=== PATIENT | male | born 1980 | race Caucasian/White ===

== ENCOUNTER 2017-04-02 14:55 | Emergency (ER) | payer OTHER ==
[2017-04-02] MEDS ORDERED: Lidocaine 1% Inj (20ml) ONE (15:34)
[2017-04-02 15:38] VITALS: BMI 28.7
[2017-04-02 15:42] VITALS: TEMP 97.8; O2SAT 98
[2017-04-02] MEDS ORDERED: Bacitracin 500 Units/gm Oint Foilpak UD ONE (16:55)
--- NOTE | 2017-04-02 16:56 | C.PDOC ---
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 Pt was using a handheld contact lens curve grinder which caused injury. Pt arrives with tourniquet on finger. Denies weakness, numbness or any other complaints. Time Seen by Provider: 04/02/17 16:17 Chief Complaint (Nursing): Finger,Hand,&Wrist History Per: Patient History/Exam Limitations: no limitations Onset/Duration Of Symptoms: Mins Current Symptoms Are (Timing): Still Present Recent travel outside of the [place]: No Past Medical History Reviewed: Historical Data, Nursing Documentation, Vital Signs Vital Signs: Last Vital Signs Temp 97.8 F 04/02/17 15:41 Pulse 82 04/02/17 17:42 Resp 18 04/02/17 17:42 BP 126/72 04/02/17 17:42 Pulse Ox 98 04/02/17 17:42 Family History: States: Unknown Family Hx - Social History Hx Alcohol Use: Yes Hx Substance Use: No - Immunization History Hx Tetanus Toxoid Vaccination: No (NOT UP TO DATE) Hx Influenza Vaccination: No Hx Pneumococcal Vaccination: No Review Of Systems Skin: Positive for: Other (laceration to tip right thumb, large laceration to right 2nd finger) Neurological: Negative for: Weakness, Numbness Physical Exam - Physical Exam Appears: Non-toxic, No Acute Distress Skin: Warm, Dry, Other (3 cm lacerations to tip of right thumb and to dorsum right 2nd finger) Head: Atraumatic, Normacephalic Extremity: Normal ROM, Capillary Refill (<2 seconds) Neurological/Psych: Oriented x3, Normal Speech, Normal Motor, Normal Sensation ED Course And Treatment O2 Sat by Pulse Oximetry: 98 (room air) Pulse Ox Interpretation: Normal Laceration - Laceration Repair No standard instances Wound Length (In cm): 3 Anesthesia: Lidocaine 1% (digital block, 10cc) Wound Examination: Irrigated With Saline, No FB With Wound Exploration, No Tendon Injury With Wound Exploration Wound Closure: Suture (3) Suture Technique And Material Used: Nylon (3-0) Medical Decision Making Medical Decision Making: lac x 2 to R thumb and 2nd finger with a hand-held contact lens curve grinder no bony injury mostly evulsed tissues of wounds, approximated with sutures. 3 3-0 nylon sutures placed to each laceration. No complications. Disposition Doctor Will See Patient In The: Office Counseled Patient/Family Regarding: Studies Performed, Diagnosis - Disposition Referrals: [facility] [Outside] Clinic,Med Surg [Primary Care Provider] - Gilmer Holland MD [Staff Provider] - Disposition: HOME/ ROUTINE Disposition Time: 16:56 Condition: GOOD Additional Instructions: Keflex 250 mg (antibiotico) 2 veces al sulma para prevenir infeccion Motrin 600 mg cada 6 horas cada 6 horas zack necessario para dolor Pepcid 20 mg en la noche para prevenir irritacion' del estomago Tramadol 50 mg (narcotico) 1 tableta cada 4-6 horas para leda mas severos y para dormir. No tocas las heridas por 2 lundberg. Mantiene elevado (mas arriba que lopez corrine) para que no se incha los dedos Duerme con la mano elevado encima de 3 almuadas. Regressa en 2 lundberg para re-evaluar andry heridas Planeamos en quitar los puntos en 7 lundberg. Puedes seguir en la [facility]- Dr. Holland, [facility] Prescriptions: Cephalexin [Keflex] 250 mg PO BID #9 capsule traMADol [Ultram] 50 mg PO Q6H PRN #20 tab PRN Reason: Pain, Moderate (4-7) Instructions: Care For Your Stitches (ED) Print Language: FRENCH - Clinical Impression Clinical Impression: Laceration of finger - Scribe Statement The provider has reviewed the documentation as recorded by the Faith Hernandez Provider Attestation: All medical record entries made by the Faith were at my direction and personally dictated by me. I have reviewed the chart and agree that the record accurately reflects my personal performance of the history, physical exam, medical decision making, and the department course for this patient. I have also personally directed, reviewed, and agree with the discharge instructions and disposition.
[2017-04-02 17:42] VITALS: BP 126/72; PULSE 82; RESP 18
--- NOTE | 2017-04-03 08:33 | RAD ---
PROCEDURE: Right Index finger radiographs. HISTORY: lac to 2nd and tip of 1st fingers COMPARISON: None. TECHNIQUE: AP radiograph of the right hand, as well as spot oblique and lateral images of index finger were obtained. FINDINGS: RIGHT INDEX FINGER: There is soft tissue avulsion of the 1st digit surrounding the distal phalanx. There is 2nd digit laceration. No soft tissue radiopaque foreign body appreciated. No definitive bony involvement/fracture/destruction Deformity of the distal ulnar diaphysis is consistent with old remote trauma/ old healed fracture here. An ulnar styloid chip osseous avulsion is also suggested. Evaluation of the carpal bones is limited JOINTS: Normal. SOFT TISSUES: Normal. OTHER FINDINGS: None. IMPRESSION: Soft tissue injuries/avulsions and lacerations. No osseous destruction
== END 2017-04-02 17:45 | disposition home or self-care (01) ==
LOC: C.ER 14:55 → SUPCPDRO 14:55 → C.ER 17:45
DX: S61.011A Laceration without foreign body of right thumb without damage to nail, initial encounter (principal); S61.210A Laceration without foreign body of right index finger without damage to nail, initial encounter; W45.8XXA Other foreign body or object entering through skin, initial encounter

== ENCOUNTER 2017-04-04 16:15 | Emergency (ER) | payer OTHER ==
[2017-04-04 16:36] VITALS: BMI 31.0
[2017-04-04 16:37] VITALS: BP 109/68; PULSE 89; RESP 18; TEMP 98.7; O2SAT 99
[2017-04-04] MEDS ORDERED: Bacitracin 500 Units/gm Oint Foilpak UD TOP ONE (16:54)
--- NOTE | 2017-04-04 16:58 | C.PDOC ---
History Of Present Illness 36 yo male, presents with wound check to right hand. as per pt, no new complaints. pt denies fever, discharge, or other complaints. Time Seen by Provider: 04/04/17 16:42 Chief Complaint (Nursing): Wound Check Past Medical History Reviewed: Historical Data, Nursing Documentation, Vital Signs Vital Signs: Last Vital Signs Temp 98.7 F 04/04/17 16:36 Pulse 89 04/04/17 16:36 Resp 18 04/04/17 16:36 BP 109/68 04/04/17 16:36 Pulse Ox 99 04/04/17 16:36 Family History: States: Unknown Family Hx - Social History Hx Alcohol Use: Yes Hx Substance Use: No - Immunization History Hx Tetanus Toxoid Vaccination: Yes Hx Influenza Vaccination: No Hx Pneumococcal Vaccination: No Review Of Systems Except As Marked, All Systems Reviewed And Found Negative. Skin: Positive for: Bruising, Other (laceration to 1,2 digits) Physical Exam - Physical Exam Appears: Well, No Acute Distress Skin: Normal Color, Warm, Dry Eye(s): bilateral: Normal Inspection, PERRL, EOMI Nose: Normal Throat: Normal Neck: Normal Cardiovascular: Rhythm Regular Respiratory: Normal Breath Sounds Gastrointestinal/Abdominal: Normal Exam Back: Normal Inspection Extremity: Normal ROM, Other ((+)swelling and ttp to right 1st 2 digits, healing laceration, moderate ecchymosis, no subungal hematoma, normal motor, senstion, no erythema, discharge. ) ED Course And Treatment O2 Sat by Pulse Oximetry: 99 Medical Decision Making Medical Decision Making: healing wound, pt will need continued wound managemen, already on antibiotic prophalxis. advise continued outpt managment and return precautions. wound cleaned, dressed, bacitracin applied. Disposition - Disposition Referrals: Gilmer Holland MD [Staff Provider] - Disposition: HOME/ ROUTINE Disposition Time: 16:59 Condition: STABLE Additional Instructions: please follow up with specialist. return to er with worsening symptoms or concenrs. Instructions: Laceration (ED), Care For Your Stitches (ED), Acute Wound Care ( ED) Print Language: UGANDAN - Clinical Impression Clinical Impression: Visit for wound check
[2017-04-04] MEDS ORDERED: Bacitracin 500 Units/gm Oint Foilpak UD ONE (17:00)
== END 2017-04-04 17:07 | disposition home or self-care (01) ==
LOC: C.ER 16:15
DX: Z48.00 Encounter for change or removal of nonsurgical wound dressing (principal)